=== PATIENT | male | born 1975 | race Caucasian/White ===

== ENCOUNTER 2021-06-06 04:51 | Emergency (ER) | payer BC, SELFPAY ==
[2021-06-06 04:56] VITALS: BP 155/85; PULSE 76; RESP 20; TEMP 36.6; O2SAT 98
--- NOTE | 2021-06-06 05:00 | ED.ALLEREA ---
HPI - Allergic Reaction General Chief complaint: Allergic Reaction Stated complaint: Allergic reaction Time Seen by Provider: 06/06/21 05:00 Source: patient Mode of arrival: ambulatory Limitations: no limitations History of Present Illness HPI narrative: Patient is a 45-year-old male who presents for evaluation of a allergic reaction. Patient reports that he was using a hair dye yesterday evening when he felt a burning sensation on his head. Patient with immediate eye swelling of the left eye and forehead swelling. Patient noticed hives on his left neck and arms. Patient was able to wash the hair dye off of his head, but reports a leaking of fluid, from sores on his head. He denies current wheezing or shortness of breath. No chest pain. No difficulty swallowing. Patient reports nausea which has resolved. No history of anaphylaxis in the past. Patient did take 2 tablets of oral Benadryl at home with some improvement in his symptoms. Patient states he has a history of allergic reaction to hair dye in the past. Related Data Allergies Allergy/AdvReac Type Severity Reaction Status Date / Time No Known Allergies Allergy Verified 06/06/21 05:02 Review of Systems Review of Systems: CONSTITUTIONAL: Denies fever CARDIOVASCULAR: Denies chest pain RESPIRATORY: Denies cough or dyspnea. GASTROINTESTINAL: Denies abdominal pain, denies nausea or vomiting SKIN: Reports sores to the scalp, reports hives to body have now resolved MUSCULOSKELETAL: Denies back pain NEUROLOGIC: Denies headache [facility] Social History Social History (Updated 06/06/21 @ 05:59 by Lo Jefferson MD) Smoking status: Never smoker Alcohol intake: never Substance use: never Living arrangements: with family Gender identity (if verbalized by the patient): Male Exam Narrative: GENERAL: Awake, alert, conversant HEAD: Normocephalic, atraumatic. Patient with blisters consistent with chemical irritation scattered to the scalp. No vesicles. No desquamation. EYES: PERRLA and EOMI. patient with mild left periorbital edema and erythema. ENT: Nares clear, no rhinorrhea or epistaxis. Mucous membranes moist. No trismus, uvula is midline. NECK: Supple. CHEST: No respiratory distress, breathing even and non labored, no wheezing HEART: Regular rate, sinus rhythm ABDOMEN:Non distended, non tender EXTREMITIES: Normal range of motion. No edema. SKIN: Warm, dry, no rash. NEURO:No focal deficits. Alert and oriented x3 Course Vital Signs Vital signs: Vital Signs Temperature 36.6 C 06/06/21 04:56 Pulse Rate 76 06/06/21 04:56 Respiratory Rate 20 06/06/21 04:56 Blood Pressure 155/85 H 06/06/21 04:56 Pulse Oximetry 98 06/06/21 04:56 Temperature 36.6 C 06/06/21 04:56 Pulse Rate 69 06/06/21 06:41 Respiratory Rate 14 06/06/21 06:41 Blood Pressure 131/70 06/06/21 06:41 Pulse Oximetry 98 06/06/21 06:41 MDM - Allergic Reaction MDM Narrative Medical decision making narrative: Patient presenting for evaluation of allergic reaction to hair dye. Patient with some chemical irritation to the scalp where the hair dye was applied as well as some forehead and left eye edema. No lip edema, no shortness of breath or signs of anaphylaxis. At this point, no to system involvement although it seems that patient did have some initial improvement with Benadryl and famotidine that he took at home. IV access obtained and patient was monitored in the emergency department after administration of additional Benadryl, famotidine, Solu-Medrol, and epinephrine. Patient with improvement in his symptoms. No rebound symptoms. Patient advised to avoid hair dye, advised to keep these Areas clean and dry and they will likely heal within the next 7 to 10 days. No vesicles or evidence of zoster infection to warrant acyclovir. This is likely from chemical irritation. Patient was then discharged home with family in stable condition. Differential Diagnosis Diffe
[2021-06-06] MEDS: methylPREDNISolone SOD SUCC 125 MG VIAL IV PUSH (06:22)
[2021-06-06] MEDS: SODIUM CHLORIDE 0.9% IV 1,000 ML 999 ML IV CONT (06:22)
[2021-06-06] MEDS: FAMOTIDINE 20 MG/2 ML VIAL IV PUSH (06:24)
[2021-06-06] MEDS: diphenhydrAMINE HCl INJ 50 MG/ML VIAL 25 MG IV PUSH (06:25)
[2021-06-06] MEDS: EPINEPHrine HCL INJ 1 MG/ML AMPUL 0.3 MG IM (06:27)
[2021-06-06 06:41] VITALS: BP 131/70; PULSE 69; RESP 14; O2SAT 98
[2021-06-06 07:50] VITALS: BP 146/76; PULSE 85; RESP 16; O2SAT 97
== END 2021-06-06 07:50 | disposition home or self-care (01) ==
PROVIDERS: Emergency Provider Emergency Medicine; PCP Physician Assistant
DX: L50.0 Allergic urticaria (principal)
CPT/HCPCS: 96361; 96372; 96374; 96375; 99284; J0171; J1200; J2930; J7030

== ENCOUNTER 2024-03-02 15:47 | Emergency (ER) | payer BC, SELFPAY ==
--- NOTE | ~2024-03-02 | CT_ITS ---
EXAMINATION: CT brain wo con DATE: 03/02/2024 17:41 INDICATION: dizziness, hypertension . TECHNIQUE: Computed tomography (CT) of the head was performed without intravenous contrast. The mA wa s adjusted according to patient size. Iterative reconstruction technique was employed. The dose-lengt h product was 605.33 mGy-cm. COMPARISON: 11/24/2016. FINDINGS: No acute intracranial hemorrhage or extra-axial fluid collection. No hydrocephalus, mass, or herniation. No acute ischemic infarct. Unremarkable dural venous sinus attenuation. No acute osseous abnormality. Mucosal thickening, aerated secretions, and air-fluid levels in the sphenoid sinuses, mucosal thicken ing and aerated secretions in the ethmoid sinuses, the remaining aerated spaces are clear. IMPRESSION: No acute intracranial process. Ethmoid and sphenoid sinus findings may represent acute sinusitis in the appropriate clinical context Reviewed, dictated and finalized at [facility]. IMPRESSION: No acute intracranial process. Ethmoid and sphenoid sinus findings may represent acute sinusitis in the [facility] clinical context
--- NOTE | ~2024-03-02 | CT_ITS ---
EXAMINATION: CTA brain carotid DATE: 03/02/2024 20:22 INDICATION: dizziness TECHNIQUE: Computed tomographic angiography (CTA) of the head and neck was performed with 100 mL Omni paque-350 intravenous contrast. Automated exposure control and iterative reconstruction technique wer e employed. The dose-length product was 1246.22 mGy-cm. Maximum intensity projection and volume rend ered 3D-reconstructions were created by the technologist on a separate workstation. COMPARISON: CT brain same date. FINDINGS: CTA HEAD: No large vessel occlusion, aneurysm, high flow vascular malformation, nidus or extravasation. Mild ca lcific plaque in the bilateral cavernous carotids without significant stenosis. Multifocal areas of m ild calcification and mild short segment narrowing likely secondary to atherosclerosis of the cerebra l arteries. CTA NECK: Aortic arch and proximal great vessels: Normal arch anatomy. Right common carotid, carotid bifurcation, and internal carotid artery: Motion artifact obscures smal l portions of the distal right common carotid artery. No significant plaque.There is 0% stenosis of t he proximal right internal carotid artery relative to normal distal artery lumen diameter (NASCET cri teria). Left common carotid, carotid bifurcation, and internal carotid artery: Motion artifact obscures small portions of the distal left common carotid artery.There is 0% stenosis of the proximal left internal carotid artery relative to normal distal artery lumen diameter (NASCET criteria). Vertebral arteries: No significant plaque or stenosis. Left vertebral artery is dominant. Other findings: None. IMPRESSION: No large vessel intracranial occlusion, high-grade intracranial stenosis, or aneurysm. No carotid or vertebral artery occlusion, dissection, or significant stenosis. Reviewed, dictated and finalized at location K. IMPRESSION: No large vessel intracranial occlusion, high-grade intracranial stenosis, or an eurysm. No carotid or vertebral artery occlusion, dissection, or significant stenosis.
[2024-03-02 15:49] VITALS: BP 192/100; PULSE 59; RESP 18; TEMP 36.6; O2SAT 100
--- NOTE | 2024-03-02 16:54 | ECG_ITS ---
Test Date: 2024-03-02 17:00:07 Measurements Intervals [place] Rate: 72 P: 61 MN: 176 QRS: 36 QRSD: 90 T: 64 QT: 407 QTc: 448 Interpretive Statements SINUS RHYTHM POSSIBLE LEFT ATRIAL ENLARGEMENT [-0.1mV P WAVE IN V1/V2] No previous ECG available for comparison Electronically Signed On 03-03-2024 11:35:00 CDT by Ernie Ross M.D.
[2024-03-02 16:55] VITALS: BP 181/94; PULSE 77; RESP 26; O2SAT 99
[2024-03-02 17:01] VITALS: BP 202/103; PULSE 75; RESP 19; O2SAT 99
[2024-03-02 17:08] LABS: Basophils Absolute Auto 0.1 K/mm3 (0.0-0.1); Basophils Percent Auto 0.7 % (0.2-1.2); Eosinophils Absolute Auto 0.3 K/mm3 (0-0.3); Eosinophils Percent Auto 4.1 % (0-4.4); Hematocrit 48.6 % (42.0-52.0); Hemoglobin 17.4 g/dL (14.0-18.0); Immature Granulocyte Absolute 0.03 K/mm3 (0.00-0.031); Immature Granulocyte Percent A 0.4 % (0-0.5); Lymphocytes Percent Auto 40.1 % (18.3-44.2); Mean Corpuscular HGB Conc 35.8 g/dl (32-36); Mean Platelet Volume 10.3 fl (7.4-10.4); Monocytes Absolute Auto 1.1 K/mm3 (0.1-0.6); Neutrophils Absolute Auto 3.4 K/mm3 (1.3-6.7); Neutrophils Percent Auto 41.7 % (45.5-73.1); Platelet Count Result 243 k/mm3 (150-375); Red Blood Count 5.28 M/mm3 (4.6-6.20); Red Cell Distribution Width 11.7 % (11.5-14.5); White Blood Count 8.2 K/mm3 (4.5-10.0)
[2024-03-02 17:10] VITALS: BP 202/103; PULSE 66; RESP 18; TEMP 36.8; O2SAT 98
--- NOTE | 2024-03-02 17:21 | ED.DIZZY ---
HPI - Dizziness General Chief Complaint: Dizziness <Tayler Iniguez PA-C - Last Filed: 03/04/24 16:56> Stated Complaint: dizziness <Tayler Iniguez PA-C - Last Filed: 03/04/24 16:56> Time Seen by Provider: 03/02/24 17:19 <Tayler Iniguez PA-C - Last Filed: 03/04/24 16:56> Source: patient <Tayler Iniguez PA-C - Last Filed: 03/04/24 16:56> Mode of arrival: ambulatory <Tayler Iniguez PA-C - Last Filed: 03/04/24 16:56> Limitations: no limitations <Tayler Iniguez PA-C - Last Filed: 03/04/24 16:56> History of Present Illness HPI Narrative: This is a 48 year old male that presents to the ER for dizziness. Ongoing since last night. Reports he feels off balance and is having difficulty walking. Denies vision changes, vomiting, focal numbness or weakness. <Tayler Iniguez PA-C - Last Filed: 03/04/24 16:56> Related Data Allergies/Adverse Reactions: Allergies Allergy/AdvReac Type Severity Reaction Status Date / Time No Known Allergies Allergy Verified 03/02/24 15:47 <Tayler Iniguez PA-C - Last Filed: 03/04/24 16:56> Review of Systems Review of Systems: CONSTITUTIONAL: Denies fever EYES: Denies visual changes CARDIOVASCULAR: Denies chest pain RESPIRATORY: Denies dyspnea. GASTROINTESTINAL: Denies vomiting NEUROLOGIC: Denies numbness, or weakness. <Tayler Iniguez PA-C - Last Filed: 03/04/24 16:56> All systems reviewed & are unremarkable except as noted in HPI and below <Tayler Iniguez PA-C - Last Filed: 03/04/24 16:56> [facility] Past Medical History Medical History: Medical History (Updated 03/04/24 @ 16:56 by Tayler Iniguez PA-C) No active medical problems <Tayler Iniguez PA-C - Last Filed: 03/04/24 16:56> Social History Social History: Social History (Updated 06/06/21 @ 05:59 by Lo Jefferson MD) Smoking status: Never smoker Alcohol intake: never Substance use: never Living arrangements: with family Gender identity (if verbalized by the patient): Male <Tayler Iniguez PA-C - Last Filed: 03/04/24 16:56> Exam Narrative: GENERAL: Well-appearing, well-nourished, and in no acute distress. HEAD: Normocephalic, atraumatic. EYES: PERRLA and EOMI. ENT: Nares clear, no rhinorrhea or epistaxis. Mucous membranes moist. Oropharynx without tonsillar hypertrophy exudate or other lesions. Bilateral TMs pearly verdugo non-bulging NECK: Supple. No adenopathy or masses. No carotid bruits or JVD CHEST: Clear to auscultation. No respiratory distress. No wheezes rales or rhonchi HEART: Regular rate and rhythm. No murmur heard. Normal peripheral pulses. EXTREMITIES: Normal range of motion. No edema. Strength equal in bilateral upper and lower extremities (5/5). SKIN: Warm, dry, no rash. NEURO: No focal deficits. Alert and oriented x3. CN II-XII grossly intact. Normal finger to nose PSYCH: Normal mood and affect <Tayler Iniguez PA-C - Last Filed: 03/04/24 16:56> Course Course Emergency Course: Patient updated on his workup thus far. Care taken over by Dr. Read at shift change <Tayler Iniguez PA-C - Last Filed: 03/04/24 16:56> Patient updated on his workup thus far. Care taken over by Dr. Read at shift change 19:00 (Jacek SILVER) - This patient was signed out to me by ZACK Iniguez pending CTA with plan for admission 21:20 - Chemistries unremarkable. CTA not concerning for intracranial hemorrhage, vascular abnormality or ischemic changes. On discussion of the findings, the patient politely declines admission and wishes to be discharge with oral antihypertensives. He has an appointment with his primary care provider tomorrow. He denies lightheadedness, weakness/numbness, chest pain or shortness of breath. He has no other complaints at this time. <Slade Read MD - Last Filed: 03/02/24 21:29> Vital Signs Vital signs: Vital Signs Temperature 97.9 F 03/02/24 15:49 Pulse Rate 59 L 03/02/24 15:49 Res
[2024-03-02 17:54] LABS: Alanine Aminotransferase 29 U/L (6-50); Albumin Level 4.5 g/dL (3.5-5.1); Alkaline Phosphatase 49 U/L (38-126); Anion Gap 6 mmol/L (4-12); Aspartate Amino Transferase 30 U/L (17-59); Bilirubin,Total 0.6 mg/dL (0.2-1.3); Blood Urea Nitrogen 16 mg/dL (9-20); Calcium 9.1 mg/dL (8.4-10.2); Carbon Dioxide 28 mmol/L (22-30); Chloride 104 mmol/L (98-107); Estimated CRCL calculation 81 ml/min; Estimated Glomerular Filt Rate > 60; Glucose 80 mg/dL (65-110); Potassium 3.8 mmol/L (3.4-5.0); Sodium 138 mmol/L (137-145)
[2024-03-02] MEDS: hydrALAZINE HCL 20 MG/ML VIAL 10 MG IV PUSH (17:59)
[2024-03-02 18:02] VITALS: BP 183/120; PULSE 70
[2024-03-02] MEDS: amLODIPine BESYLATE 5 MG TABLET 10 MG PO (21:43)
== END 2024-03-02 21:50 | disposition home or self-care (01) ==
PROVIDERS: Emergency Medicine; Emergency Provider Preventive Medicine Aerospace Medicine; PCP Physician Assistant
DX: R42 Dizziness and giddiness (principal); I10 Essential (primary) hypertension; R94.31 Abnormal electrocardiogram [ECG] [EKG]
CPT/HCPCS: 36415; 70450; 70496; 70498; 80053; 85025; 93005; 96374; 99284; A9270; J0360; Q9967